=== PATIENT | male | born 1980 | race Caucasian/White ===

== ENCOUNTER 2023-03-21 16:45 | Emergency (ER) | payer MEDICARE, MEDICAID, SELFPAY ==
--- NOTE | ~2023-03-21 | XR_ITS ---
EXAMINATION: XR CHEST CLINICAL INFORMATION: Chest pain COMPARISON: None available. TECHNIQUE: 2 views of the chest were obtained. FINDINGS: No significant abnormality is noted involving the heart, lungs, mediastinum or soft tissues. There are mild compression fractures of mid to upper thoracic vertebral bodies. XR/XR chest 2V IMPRESSION: No acute intrathoracic disease. Mild compression fractures of mid to upper thoracic vertebral bodies.
--- NOTE | ~2023-03-21 | XR_ITS ---
EXAMINATION: XR KNEE, RIGHT CLINICAL INFORMATION: Knee pain COMPARISON: None available. TECHNIQUE: Four views of the right knee. FINDINGS: No fracture or joint effusion. Alignment is anatomic. Mild narrowing of the medial compartment. No abnormal soft tissue calcification. XR/XR knee RT 3V IMPRESSION: Mild narrowing of the medial compartment.
--- NOTE | ~2023-03-21 | XR_ITS ---
EXAMINATION: XR LUMBOSACRAL SPINE CLINICAL INFORMATION: Back pain COMPARISON: None available. TECHNIQUE: Three views of the lumbosacral spine. FINDINGS: There is a scoliosis convex to the left centered at L3-L4. There is a compression fracture superior endplate of L3 with loss of height anteriorly. The age of this is indeterminate. No definite acute fractures or bony destructive lesions. XR/XR lumbar spine 2-3V IMPRESSION: Compression fracture superior endplate of L3, age indeterminate.
--- NOTE | ~2023-03-21 | US_ITS ---
EXAMINATION: US VENOUS ULTRASOUND WITH DOPPLER LOWER EXTREMITY, RIGHT CLINICAL INFORMATION: Right lower extremity pain. COMPARISON: None available. TECHNIQUE: Ultrasound of the deep veins is performed from the hip to the calf with compression sonography and color and pulse Doppler assessment. Spectral analysis with color-flow imaging is performed. FINDINGS: There is normal venous compression and respiratory variation and augmented flow. The visualized common femoral vein, superficial femoral vein, profunda femoral vein, popliteal vein, and the trifurcation region shows no evidence of deep venous thrombosis. There is no significant popliteal fossa cyst. If the patient's symptoms persist, followup ultrasound in 5 days 7 days might be of value to exclude proximal propagation from a non-visualized calf vein. US/US venous duplex LE RT IMPRESSION: No DVT demonstrated in the right lower extremity.
--- NOTE | 2023-03-21 16:53 | ED_ITS ---
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 Patient reports that he has had this pain for a long time , worsened over the last several months. Patient states that he also had an episode of chest pain which occurred today. Describes this pain as pressure- like, and left-sided. He states that the chest pain resolved after several minutes. Denies any shortness of breath or pain radiation.He otherwise is feeling well, denies any fevers, chills, headaches, blurred vision, current chest pain, shortness breast, abdominal pain, nausea, vomiting or diarrhea. Denies saddle anesthesia. No urinary or bowel incontinence. He is ambulatory. No other complaints or concerns at this time. MD complaint: Back pain, knee pain Onset (ago): unknown Location: back and lower extremity Radiation: non-radiation Quality: aching Pain Consistency: constant Relieving factors: none Exacerbating factors: none Associated symptoms: denies other symptoms Treatments prior to arrival: none Related Data Home Medications Medication Instructions Recorded Confirmed acetaminophen 325 mg tablet 650 mg PO Q4H PRN Pain (Scale 03/21/23 03/21/23 Score 1-3) benztropine 0.5 mg tablet 0.5 mg PO BID 03/21/23 03/21/23 diphenhydramine HCl 50 mg capsule 50 mg PO BEDTIME PRN insomnia 03/21/23 03/21/23 (Banophen) docusate sodium 100 mg capsule 100 mg PO BID 03/21/23 03/21/23 fluticasone propionate 50 1 spray intranasal DAILY 03/21/23 03/21/23 mcg/actuation nasal spray,suspension haloperidol 10 mg tablet 10 mg PO BEDTIME 03/21/23 03/21/23 hydroxyzine HCl 50 mg tablet 50 mg PO QID PRN Anxiety 03/21/23 03/21/23 ibuprofen 400 mg tablet 400 mg PO Q8H PRN 03/21/23 03/21/23 BODYACHE/TOOTHACHE lactulose 10 gram/15 mL oral 20 g PO DAILY 03/21/23 03/21/23 solution melatonin 3 mg tablet 3 mg PO BEDTIME 03/21/23 03/21/23 nicotine (polacrilex) 2 mg gum 2 mg buccal Q2H PRN Nicotine 03/21/23 03/21/23 Cravings polyethylene glycol 3350 17 gram 17 g PO DAILY 03/21/23 03/21/23 oral powder packet quetiapine 100 mg tablet 100 mg PO BEDTIME PRN Insomnia 03/21/23 03/21/23 sennosides 8.6 mg tablet (senna) 8.6 mg PO DAILY 03/21/23 03/21/23 Previous Rx's Medication Instructions Recorded lidocaine 5 % topical patch 1 patch topical DAILY #30 ea 03/21/23 (Lidoderm) Allergies Allergy/AdvReac Type Severity Reaction Status Date / Time Penicillins Allergy Vomiting Verified 03/21/23 17:10 shellfish derived Allergy Swelling Verified 03/21/23 17:10 Review of Systems 2 Review of Systems: Yes all other systems are reviewed and are negative Constitutional: Constitutional: Reports as per [facility] Social History Social History Alcohol intake: never Smoked in Last 30 Days: Yes Use of substances other than those prescribed or required for medical reasons: No Advance Directives: No Advance Directives Information Provided: No Physical Exam ED Vital Signs: Vital Signs - 24 hr 03/21/23 16:56 03/21/23 18:55 03/21/23 19:56 Temperature 97.6 F 97.6 F Pulse Rate 65 75 79 Respiratory Rate 20 18 18 Blood Pressure 133/83 144/88 H 146/94 H Pulse Oximetry 95 96 95 Oxygen Delivery Method Room Air Room Air Room Air 03/21/23 21:50 Temperature 98.0 F Pulse Rate 85 Respiratory Rate 18 Blood Pressure 142/85 H Pulse Oximetry 95 Oxygen Delivery Method Room Air BMI result Body Mass Index 22.8 Const General: cooperative, comfortable and no acute distress Orientation/consciousness: patient oriented x3 Limitations: no limitations HENMT Head: Yes normal to inspection, Yes normocephalic and Yes atraumatic Ears: hearing grossly normal bilaterally General nose exam: Normal external nose present Face and sinus: Yes normal facial exam Mouth: Normal oral and palatal mucosa present, oropharynx normal and moist mucous membranes Throat: Yes posterior oropharynx normal Eyes General: appearance normal, both eyes and all related structures Eyelids: Yes eyelids normal Conjunctivae: conjunctivae normal Sclerae: sclerae normal Pupils: Equal, round and reactive pupils present EOM: EOMs intact bilaterally Neck Neck: Yes normal visual inspection, Yes full ROM and Yes no lymphadenopathy Lymphatic: no lymphadenopathy noted Chest Chest palpation & inspection: normal inspection of the chest Resp Effort & Inspection: normal respiratory effort and able to speak in complete sentences Auscultation: clear to auscultation bilaterally, no crackles, no rales, no rhonchi and no wheezes Cardio Rate: regular rate Rhythm: regular rhythm Heart sounds: S1 normal heart sound present and S2 normal heart sound present GI Inspection: Yes normal to inspection General: Yes no CVA tenderness Back/Spine/Pelvis Other: TTP overlying thoracic midline spine. No step off or deformity. No skin changes. Back: no CVA tenderness Cervical Spine: normal cervical lordosis Thoracic/Lumbar Spine: thoracic and lumbar spine normal to inspection Skin General skin exam: no rashes or lesions noted Trauma: no lacerations or abrasions Wounds: no wounds Neuro General: patient oriented x3 and moves all extremities Cranial nerves: Yes Equal, round and reactive pupils present Extrem Other: bilateral lower extremities are well perfused, with right calf tenderness. tenderness palpation along the posterior knee no overlying skin changes. DP pulses 2+. bilateral knees bony abnormalities diffusely nontender. General: Yes normal to inspection Right upper extremity: normal to inspection Left upper extremity: normal to inspection Right lower extremity: normal to inspection Left lower extremity: normal to inspection Psych Appearance: disheveled Speech and movement: Slowed speech present (Psych) Affect: Blunted affect present Attitude: cooperative Thought content: Normal thought content present Insight: Fair insight present (Psych) Judgement: Fair judgement present (Psych) Course Reevaluation(s) Reevaluation #1: ultrasound does not reveal any DVT in the right lower extremity, lumbar spine x-ray shows compression fracture of the endplate of L3, knee x-ray shows mild narrowing of the medial compartment, chest x-ray shows no acute intrathoracic disease. Mild compression fracture of mid to upper thoracic vertebral bodies. Heart score 0. Discussed this with patient, he states that he has had all of these for a long time. He has no red flag back symptoms, reporting that he feels comfortable for discharge. Discussed return precautions with patient. Printed out prescription for Lidoderm patches, advised to take Tylenol as needed. Also advised a follow-up with primary care physician. Patient understands and agrees with plan. Patient stable for discharge. Time: 23:22 Medications Administered Discontinued Medications Generic Name Dose Route Start Last Admin Trade Name Leo PRN Reason Stop Dose Admin Acetaminophen 650 mg 03/21/23 18:04 03/21/23 18:44 Acetaminophen 325 Mg Tablet PO 03/21/23 18:05 650 mg ONCE ONE Administration Ibuprofen 600 mg 03/21/23 22:31 03/21/23 22:41 Ibuprofen 600 Mg Tablet PO 03/21/23 22:32 600 mg ONCE ONE Administration Medical Decision Making Medical Decision Making MDM Narrative: 42-year-old male presenting to the emergency department for evaluation of bilateral knee pain and back pain. On arrival, patient with blunted affect, with normal vital signs. Bilateral lower extremities are well perfused with mild tenderness palpation along the posterior right knee. No overlying skin changes. Also reporting episode of left-sided chest pain which occurred today. Patient is homeless and is coming to the emergency department via EMS from [facility]. I have received their notes and it appears that patient was previously seen at [facility] where he was evaluated for knee pain and back pain there is a CT scan of his back which was completed on January 18, 2023 and pro vider reported ? posterior disc osteophyte complexes, patient was medically cleared and was referred for inpatient psychiatric treatment. Patient is new to this hospital without any previous medical records, will obtain EKG, labs, viral swabs ultrasound of right lower extremity, right knee X-ray, lumbar spine x-ray and chest x-ray and EKG. Differential Diagnosis Differential Diagnoses: The differential diagnosis associated with the presentation includes Myalgias, electrolyte abnormality, ACS -unlikely, DVT-unlikely Admission/Observation Consideration of admission/observation: Escalation of care including admission/observation considered Patient would have been admitted to the hospital had his work up had any findings where hospital admission was appropriate and his clinical presentation warranted hospital admission. Lab Data [facility] Lab Attestation statement: I reviewed the patient's lab results. Negative troponin x2, no leukocytosis, normocytic anemia with hemoglobin hematocrit 13/39. CPK at 406 - nondiagnostic. 03/21/23 17:40 03/21/23 17:40 Labs: Lab Results 03/21/23 03/21/23 Range/Units 17:40 21:47 WBC 6.8 (4.8-10.8) X10*3/uL RBC 4.40 L (4.60-5.80) X10*6/uL Hgb 13.4 L (14.0-18.0) g/dl Hct 39.6 L (42.0-52.0) % MCV 90.0 (80.0-98.0) fL MCH 30.5 (27.0-33.0) pg MCHC 33.8 (31.0-36.0) g/dl RDW 12.4 (11.0-16.0) % Plt Count 213 (160-400) X10*3/uL MPV 8.9 L (9.4-12.4) fL Immature Gran % (Auto) 0.1 (0.0-0.4) % Neut % (Auto) 64.3 (45-73) % Lymph % (Auto) 25.8 (20-40) % Frederick % (Auto) 8.4 (2-11) % Eos % (Auto) 1.0 (0-4) % Baso % (Auto) 0.4 (0-2) % Lymph # (Auto) 1.8 (1.2-4.9) X10*3/uL Frederick # (Auto) 0.6 (0.1-1.2) X10*3/uL Eos # (Auto) 0.1 (0.0-0.4) X10*3/uL Baso # (Auto) 0.0 (0.0-0.2) X10*3/uL Abs Immat Gran (auto) 0.01 (0.00-0.03) X10*3/uL Absolute Neuts (auto) 4.3 (2.0-8.3) x10*3/uL Absolute Nucleated RBC 0.000 (0.0-0.012) X10*3/uL Nucleated RBC % (auto) 0.0 (0.0-0.2) /100WBC Sodium 137 (135-145) mmol/L Potassium 4.7 (3.3-5.1) mmol/L Chloride 98 (96-108) mmol/L Carbon Dioxide 28 (22-29) mmol/L Anion Gap 16 (12-20) BUN 14 (9-16) mg/dL Creatinine 0.78 (0.5-1.4) mg/dL Estim Creat Clear Calc 133.1 Estimated GFR > 60 Random Glucose 95 (60-115) mg/dL Calcium 10.3 H (8.4-10.2) mg/dL Magnesium 2.2 (1.6-2.6) mg/dL Total Bilirubin 0.3 (0.0-1.0) mg/dL Direct Bilirubin 0.1 (0.0-0.5) mg/dL AST 28 (5-37) U/L ALT 20 (0-40) U/L Alkaline Phosphatase 86 (39-117) U/L Total Creatine Kinase 406 H (38-174) U/L Troponin I High Sens 5.9 5.9 (<3.5-35.0) ng/L Total Protein 7.7 (6.5-8.0) g/dL Albumin 4.3 (3.5-5.0) g/dL Urine Color Yellow Urine Appearance Clear Urine pH 6.0 (5.0-9.0) Ur Specific R[place]y <= 1.005 (1.005-1.025) Urine Protein Negative (Neg-Trace) mg/dL Urine Glucose (UA) Negative (Negative) mg/dL Urine Ketones Negative (Negative) mg/dL Urine Blood Negative (Negative) Urine Nitrite Negative (Negative) Ur Leukocyte Esterase Negative (Negative) Urine Opiates Screen Not Detected (Not Detect) Urine Fentanyl Screen Not Detected (Not Detect) Ur Barbiturates Screen Not Detected (Not Detect) Ur Phencyclidine Scrn Not Detected (Not Detect) Ur Amphetamines Screen Not Detected (Not Detect) U Benzodiazepines Scrn Not Detected (Not Detect) Urine Cocaine Screen Not Detected (Not Detect) U Marijuana (THC) Screen Not Detected (Not Detect) Ethyl Alcohol < 10 mg/dL Influenza Type A (PCR) NEGATIVE (Negative) Influenza Type B (PCR) NEGATIVE (Negative) RSV RNA Qual (PCR) NEGATIVE (Negative) SARS-CoV-2 RNA (RT-PCR) NEGATIVE (Negative) Independent Interpretation I performed an independent interpretation of an: EKG Interpretation: Sinus rhythm with PVCs. no STEMI noted. no preious EKG for comparison. Radiology Impression Discussion of test interpretation with radiology: I have reviewed the radiologist's reading. Radiologist Impression: XAMINATION: XR CHEST CLINICAL INFORMATION: Chest pain COMPARISON: None available. TECHNIQUE: 2 views of the chest were obtained. FINDINGS: No significant abnormality is noted involving the heart, lungs, mediastinum or soft tissues. There are mild compression fractures of mid to upper thoracic vertebral bodies. XR/XR chest 2V IMPRESSION: No acute intrathoracic disease. Mild compression fractures of mid to upper thoracic vertebral bodies. Dictated By: Robert Dickson MD EXAMINATION: XR KNEE, RIGHT CLINICAL INFORMATION: Knee pain COMPARISON: None available. TECHNIQUE: Four views of the right knee. FINDINGS: No fracture or joint effusion. Alignment is anatomic. Mild narrowing of the medial compartment. No abnormal soft tissue calcification. XR/XR knee RT 3V IMPRESSION: Mild narrowing of the medial compartment. Dictated By: Robert Dickson MD EXAMINATION: XR LUMBOSACRAL SPINE CLINICAL INFORMATION: Back pain COMPARISON: None available. TECHNIQUE: Three views of the lumbosacral spine. FINDINGS: There is a scoliosis convex to the left centered at L3-L4. There is a compression fracture superior endplate of L3 with loss of height anteriorly. The age of this is indeterminate. No definite acute fractures or bony destructive lesions. XR/XR lumbar spine 2-3V IMPRESSION: Compression fracture superior endplate of L3, age indeterminate. Dictated By: Robert Dickson MD Signed By: <Electronically signed by Robert Dickson MD in OV> CLINICAL INFORMATION: Right lower extremity pain. COMPARISON: None available. TECHNIQUE: Ultrasound of the deep veins is performed from the hip to the calf with compression sonography and color and pulse Doppler assessment. Spectral analysis with color-flow imaging is performed. FINDINGS: There is normal venous compression and respiratory variation and augmented flow. The visualized common femoral vein, superficial femoral vein, profunda femoral vein, popliteal vein, and the trifurcation region shows no evidence of deep venous thrombosis. There is no significant popliteal fossa cyst. If the patient's symptoms persist, followup ultrasound in 5 days 7 days might be of value to exclude proximal propagation from a non-visualized calf vein. US/US venous duplex LE RT IMPRESSION: No DVT demonstrated in the right lower extremity. Dictated By: Tulio Christianson External Record Review review of [facility] medical records, patient was seen at [facility] for back and knee pain, see above MDM for further details. Prescription Management I considered prescription management with: Pain Medication Social Determinants Patient?s care significantly limited by Social Determinants of Health including: Inadequate housing Scores Heart Score History: -0- slightly suspicious ECG: -0- normal Age: -0- < or = 45 Risk factory: -0- no risk factors known Troponin: -0- < or = normal limit Score: 0 Risk: 1.7% Discharge Plan Discharge Clinical Impression: Chronic back pain, Chronic knee pain Patient Disposition: Xfer Psychiatric Hosp Transfer Details: [facility] Instructions: Knee Pain (ED), Back Pain (ED), Non-pharmacological Pain Management Therapies for Adults (ED) Additional Instructions: Your x-ray today shows a compression fracture this superior endplate of L3. Your right knee x-ray shows mild narrowing of the medial compartment. Your chest x-ray shows no pneumonia, but mild compression fractures of mid to upper thoracic vertebral bodies. Your ultrasound does not show a blood clot in your right leg. Your EKG and bloodwork was reassuring today. Please follow-up with your primary care physician regarding this visit. Take ibuprofen and Tylenol as needed pain. Please use Lidoderm patches as needed for pain. If any new or worsening symptoms occur, including but not limited to chest pain or shortness of breath, please return for re-evaluation. Prescriptions: New lidocaine [Lidoderm] 5 % adhesive patch,medicated 1 patch topical DAILY Qty: 30 0RF Rx Instructions: leave on most painful area for up to 12 hrs No Action sennosides [senna] 8.6 mg Tablet 8.6 mg PO DAILY acetaminophen 325 mg Tablet 650 mg PO Q4H PRN (Reason: Pain (Scale Score 1-3)) benztropine 0.5 mg tablet 0.5 mg PO BID diphenhydramine HCl [Banophen] 50 mg capsule 50 mg PO BEDTIME PRN (Reason: insomnia) polyethylene glycol 3350 17 gram Powder In Packet 17 g PO DAILY nicotine (polacrilex) 2 mg Gum 2 mg BUCCAL Q2H PRN (Reason: Nicotine Cravings) hydroxyzine HCl 50 mg Tablet 50 mg PO QID PRN (Reason: Anxiety) melatonin 3 mg Tablet 3 mg PO BEDTIME quetiapine 100 mg Tablet 100 mg PO BEDTIME PRN (Reason: Insomnia) haloperidol [Haldol] 10 mg Tablet 10 mg PO BEDTIME ibuprofen 400 mg Tablet 400 mg PO Q8H PRN (Reason: BODYACHE/TOOTHACHE) docusate sodium 100 mg Capsule 100 mg PO BID fluticasone propionate 50 mcg/actuation [place],Suspension 1 spray INTRANASAL DAILY Rx Instructions: administer into each nostril lactulose 10 gram/15 mL Solution 20 g PO DAILY Interventions: ED Discharge Assessment Last Done: 03/22/23 00:17 Discharge Date/Time: 03/22/23 00:19
[2023-03-21 16:56] VITALS: BP 133/83; BP 138/92; PULSE 60; PULSE 65; RESP 20; TEMP 36.4; O2SAT 95; O2SAT 96; BMI 22.8
--- NOTE | 2023-03-21 17:20 | ECG_ITS ---
Test Reason : cp Blood Pressure : / mmHG Vent. Rate : 070 BPM Atrial Rate : 070 BPM P-R Int : 168 ms QRS Dur : 090 ms QT Int : 436 ms P-R-T Axes : 000 079 054 degrees QTc Int : 470 ms Poor data quality Sinus rhythm RSR' or QR pattern in V1 suggests right ventricular conduction delay Nonspecific ST abnormality Abnormal ECG No previous ECGs available Referred By: Abby Bryant Electronically Signed By:REAL SLATER MD
[2023-03-21 17:48] LABS: MANUAL DIFF FLAG NO
[2023-03-21 17:50] LABS: Appearance Urine Clear; Color Urine Yellow; Glucose Urine UA Negative (Negative); Leukocyte Esterase Urine Negative (Negative); Nitrite Urine Negative (Negative); Specific Gravity - Urine <= 1.005 (1.005-1.025); Urine Blood Negative (Negative); Urine Ketones Negative (Negative); Urine Protein Negative (Neg-Trace)
[2023-03-21 17:52] LABS: Basophils Percent Auto 0.4 % (0-2); Eosinophils Absolute Auto 0.1 X10*3/uL (0.0-0.4); Hematocrit 39.6 % (42.0-52.0); Hemoglobin 13.4 g/dl (14.0-18.0); Imm Gran Abs Auto 0.01 X10*3/uL (0.00-0.03); Imm Gran Pct Auto 0.1 % (0.0-0.4); Lymphocytes Absolute Auto 1.8 X10*3/uL (1.2-4.9); Lymphocytes Percent Auto 25.8 % (20-40); Mean Corpuscular HGB Conc 33.8 g/dl (31.0-36.0); Mean Corpuscular Hemoglobin 30.5 pg (27.0-33.0); Mean Platelet Volume 8.9 fL (9.4-12.4); Monocytes Absolute Auto 0.6 X10*3/uL (0.1-1.2); Monocytes Percent Auto 8.4 % (2-11); Neutrophils Absolute Auto 4.3 x10*3/uL (2.0-8.3); Neutrophils Percent Auto 64.3 % (45-73); Platelet Count 213 X10*3/uL (160-400); Red Cell Distribution Width 12.4 % (11.0-16.0); White Blood Count 6.8 X10*3/uL (4.8-10.8)
[2023-03-21 17:57] LABS: Amphetamine Screen Urine Not Detected (Not Detect); Barbiturates, Urine Not Detected (Not Detect); Benzodiazepines Screen Urine Not Detected (Not Detect); Cannabinoid Screen Urine Not Detected (Not Detect); Cocaine Screen Urine Not Detected (Not Detect); Fentanyl, urine Not Detected (Not Detect); Opiate Screen Urine Not Detected (Not Detect); Phencyclidine Screen Urine Not Detected (Not Detect)
[2023-03-21 18:07] LABS: Ethanol < 10 mg/dL
[2023-03-21 18:08] LABS: Alanine Aminotransferase 20 U/L (0-40); Albumin Level 4.3 g/dL (3.5-5.0); Alkaline Phosphatase 86 U/L (39-117); Anion Gap 16 (12-20); Aspartate Amino Transferase 28 U/L (5-37); Bilirubin Direct 0.1 mg/dL (0.0-0.5); Bilirubin Total 0.3 mg/dL (0.0-1.0); Blood Urea Nitrogen 14 mg/dL (9-16); Calcium 10.3 mg/dL (8.4-10.2); Carbon Dioxide 28 mmol/L (22-29); Chloride 98 mmol/L (96-108); Creatinine Clr Calc Pharmacy 133.1; Estimated Glomerular Filt Rate > 60; Glucose Random 95 mg/dL (60-115); Magnesium 2.2 mg/dL (1.6-2.6); Potassium 4.7 mmol/L (3.3-5.1); Sodium 137 mmol/L (135-145); Total Protein 7.7 g/dL (6.5-8.0)
[2023-03-21 18:15] LABS: Troponin-I High Sensitivity 5.9 ng/L (<3.5-35.0)
[2023-03-21 18:31] LABS: Influenza A PCR NEGATIVE (Negative); Influenza B PCR NEGATIVE (Negative); Resp Syncy Virus RNA Qual PCR NEGATIVE (Negative); SARS COV2 PCR INHOUSE NEGATIVE (Negative)
[2023-03-21] MEDS: Acetaminophen 325 MG TABLET 650 MG PO (18:44)
[2023-03-21 18:55] VITALS: BP 144/88; PULSE 75; RESP 18; O2SAT 96
--- NOTE | 2023-03-21 19:46 | PC.NURSE ---
care assumed of patient at this time; ultrasound is at bedside.
[2023-03-21 19:56] VITALS: BP 146/94; PULSE 79; RESP 18; TEMP 36.4; O2SAT 95
--- NOTE | 2023-03-21 20:10 | PC.NURSE ---
pt on a section 12 from [place], pt still endorsing SI at this time; does not verbalize that he has a plan in place. charger made aware. pt does answer NO to feeling safe at home as he is currently homeless.
--- NOTE | 2023-03-21 21:20 | PHA.MEDREC ---
Pharmacy Consult ? Medication Reconciliation Pharmacy has completed the medication reconciliation. Patient came from [facility] with med list. Deisy Ashby, RadhaD
[2023-03-21 21:50] VITALS: BP 142/85; PULSE 85; RESP 18; TEMP 36.7; O2SAT 95
[2023-03-21] MEDS: Ibuprofen 600 MG TABLET PO (22:41)
[2023-03-21 23:11] LABS: Troponin-I High Sensitivity 5.9 ng/L (<3.5-35.0)
== END 2023-03-22 00:19 ==
PROVIDERS: Physician Assistant Medical; Emergency Provider Internal Medicine
DX: R07.89 Other chest pain (principal); M54.2 Cervicalgia; M25.561 Pain in right knee; M54.50 Low back pain, unspecified; R60.0 Localized edema; Z20.822 Contact with and (suspected) exposure to COVID-19; Z20.828 Contact with and (suspected) exposure to other viral communicable diseases; Z79.899 Other long term (current) drug therapy
CPT/HCPCS: 0241U; 36415; 71046; 72100; 73562; 80048; 80076; 80307; 81003; 82550; 83735; 84484; 85025; 93005; 93971; 99285